=== PATIENT | male | born 2000 | race African-American/Black ===

== ENCOUNTER 2025-05-09 22:32 | Emergency (ER) | payer MEDICAID ==
[~2025-05-09] VITALS: Ht 185.4 cm; Wt 86.0 kg
[~2025-05-09 22:32] MED LIST: NAP500T PO
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
--- NOTE | 2025-05-09 23:01 | DVH ---
CLINICAL INDICATION: RIGHT HAND PAIN TECHNIQUE: XY R HAND 3 VIEW XRAY Comparison: None FINDINGS/IMPRESSION: : There is no evidence of acute fracture or dislocation. Soft tissues are unremarkable.
[2025-05-09 23:35] VITALS: BP 140/84; PULSE 96; RESP 18; TEMP 98.1; O2SAT 95
[2025-05-09] MEDS: TETANUS-DIPTH-ACEL PERTUSSIS 0.5ML SYR Tdap IM ONE (23:44)
[2025-05-09] MEDS ORDERED: IBUP-1456 PO (23:51)
[2025-05-09] MEDS ORDERED: CEPH500C PO (23:51)
== END 2025-05-10 00:05 | disposition home or self-care (01) ==
LOC: EDBD 22:32 → ER 22:32
DX: S60.511A Abrasion of right hand, initial encounter (principal); Z79.899 Other long term (current) drug therapy; W22.8XXA Striking against or struck by other objects, initial encounter; Y93.89 Activity, other specified; Y92.89 Other specified places as the place of occurrence of the external cause; Y99.8 Other external cause status
CPT/HCPCS: 73130; 90471; 90715